=== PATIENT | female | born 1960 | race Caucasian/White ===

== ENCOUNTER 2018-06-08 06:54 | Day surgery (SDC) | payer BC ==
--- NOTE | 2018-06-08 06:36 | History and Physical - [place] ---
CHIEF COMPLAINT/HISTORY OF CHIEF COMPLAINT: This patient with a history of intractable lumbar radiculopathy has a [employer] spinal cord stimulator implanted. The implant date was 07/17/15. Although the system is helping she has had certain breakthrough areas of pain in her extremities. Programming options were exhausted although we had pain control we still had areas of breakthrough. Since that time [employer] has released a new generator Wavewriter with a whole new technology in developing different waveform strategies as well as automated rotation between different wave patterns in the same time period overall improving the potential for pain control and control of the breakthrough. She is here for the stimulator generator change to improve functionality of the system. PAST MEDICAL HISTORY: Noncontributory. PAST SURGICAL HISTORY: Cervical spine fusion and stimulator implant. MEDICATIONS ON ADMISSION: List to be provided. ALLERGIES: [] FAMILY/PSYCHOSOCIAL HISTORY: Family history - Coronary artery disease, thyroid disease, and cancer. SYSTEMS REVIEW: The patient is appropriate in no acute distress. The remainder of the systems review is positive for glasses, dentures, headaches, bronchitis, peripheral edema, and degenerative arthritis. PHYSICAL EXAMINATION: Height is 5'8", weight is 200 pounds. No vital signs. HEENT: Within normal limits. LUNGS: Clear. HEART: Regular rate and rhythm. ABDOMEN: Nontender. MUSCULOSKELETAL: Examination of the musculoskeletal system shows the stimulator pump pouch at the left posterior gluteal margin. The incisional site is intact. No breakdown of cellulitis. Underlying pain pattern low back with a bilateral lower extremity extension. Pain pattern following the front and back surface. Sensory abnormalities across the front and back. Motor weakness in both legs. Ambulation - No assistive device utilized. NEUROLOGIC: Cranial nerves are intact. IMPRESSION: 1. LUMBAR RADICULOPATHY, ICD-10 CODE M54.16 AND M54.17. 2. SPINAL CORD STIMULATOR AND INTERNAL GENERATOR. PLAN: The patient is here for internal pulse generator change to maximize the effectiveness of the indwelling spinal cord stimulator. The procedure will be considered outpatient. All of the potential risks, side effects, and complications have been reviewed. JOB NUMBER: [id number] MTDD
[~2018-06-08 06:54] MED LIST: ACETAMINOPHEN 1,000 MG/100 ML BTL IV ONE; CEFAZOLIN 2 Gram 2 GM/50 ML BAG IVPB ONE; FAMOTIDINE 20MG TABLET PO ONE; MECLIZINE 25 MG TABLET PO ONE; METOCLOPRAMIDE 10 MG TABLET PO ONE
[2018-06-08] MEDS ORDERED: LIDOCAINE 2% MDV (20MG/ML) 20ML VIAL IV ONE (06:55)
[2018-06-08] MEDS ORDERED: PROPOFOL 10 MG/ML VIAL IV ONE (06:55)
[2018-06-08] MEDS ORDERED: LIDOCAINE 1% W/EPI 1:200,000 MPF 30ML SQ ONE (06:55)
[2018-06-08] MEDS ORDERED: MIDAZOLAM HCL 2MG/2ML VIAL IV ONE (06:55)
[2018-06-08] MEDS ORDERED: FENTANYL PF 100MCG/2ML VIAL IV ONE (06:55)
[2018-06-08] MEDS ORDERED: BUPIVACAINE 0.5% W/EPI MPF 30 ML VIAL IVP ONE (06:55)
--- NOTE | 2018-06-08 17:14 | Operative Note ---
DATE OF SURGERY: 06/08/18 PREOPERATIVE DIAGNOSES: 1. INTRACTABLE LUMBAR RADICULOPATHY. 2. SPINAL CORD STIMULATOR INTERNAL GENERATOR. OPERATION: FLUOROSCOPICALLY-GUIDED REMOVAL AND REPLACEMENT OF INTERNAL PULSE GENERATOR, LEFT POSTERIOR GLUTEAL MARGIN FOR SPINAL CORD STIMULATOR. SURGEON: LIUDMILA COOLEY D.O. ANESTHESIA: LOCAL SEDATION. ANESTHESIA PROVIDER: EVERARDO Rutherford INDICATION: This patient presents with a history of intractable lumbar radiculopathy. Spinal cord stimulator internal generator in place. Due to the inability to fully control the current pain pattern with breakthrough and maximum use of the current internal generator, she is here for replacement with a new [employer] WaveWriter generator, which will allow for greater capabilities, more waveform provocation, and more effective overlap between different waveform functions. PROCEDURE: Intravenous line, vital sign monitoring, IV sedation. Prepped and draped sterile technique. Patient position prone. Sterile prep. Sterile technique. At the left posterior/superior gluteal margin, with imaging for guidance and local for infiltration, the incision was infiltrated, incision made , and subcutaneous dissection was conducted to the generator. The generator was then exteriorized and from the internal leads. The new WaveWriter generator placed onto the field interfaced with the existing leads with four contacts. Antibiotic irrigation and Bovie for hemostasis. The generator was placed back into the pouch and secured to the posterior fascia with nonabsorbable suture. The incision was then closed using STRATAFIX suture 2-0 fascia, 3-0 skin. Dermabond closure. She was transported to the Recovery Room stable. In the Recovery Room when fully awake and alert, complex programming of the generator performed over 20 minutes re-establishing stimulation. DISCHARGE INSTRUCTIONS: 1. Sites will remain clean and dry although the Dermabond will allow showering. 2. Standard medications resumed including the antibiotic, Levaquin, 500 mg once a day for 14 days. 3. The office will contact the patient in 24-48 hours to set up an appointment in 7-10 days to evaluate the incisional site. Until then, she is to keep her activities low. All other instructions provided. The antibiotic has been called. We will see the patient in 7-10 days. cc: Dr. Morales JOB NUMBER: [id number] MTDD
== END 2018-06-08 09:49 | disposition home or self-care (01) ==
LOC: SUR 06:54
PROVIDERS: ATTEND Pain Medicine Interventional Pain Medicine
DX: M54.16 Radiculopathy, lumbar region (principal); M06.9 Rheumatoid arthritis, unspecified; M79.7 Fibromyalgia
CPT/HCPCS: 95972; C1820